=== PATIENT | female | born 1950 | race Caucasian/White ===

== ENCOUNTER → 2021-08-04 | Outpatient (CLI) | payer MEDICARE, OTHER | LOC: M.MRI 08-03 13:30 | PROVIDERS: ATTEND Orthopaedic Surgery | DX: S83.282A Other tear of lateral meniscus, current injury, left knee, initial encounter (principal); S83.242A Other tear of medial meniscus, current injury, left knee, initial encounter; M17.12 Unilateral primary osteoarthritis, left knee; M25.462 Effusion, left knee; X58.XXXA Exposure to other specified factors, initial encounter; Y93.89 Activity, other specified; Y92.89 Other specified places as the place of occurrence of the external cause; Y99.8 Other external cause status ==

== ENCOUNTER → 2021-10-14 | Outpatient (CLI) | payer MEDICARE, OTHER ==
[~2021-10-14] MED LIST: ACETAMINOPHEN500 M1 PO; CELEXA20 MG PO; FENTANYL1 EAC1 TRANSDERM; HAIR SKIN NAIL1 EACH PO; LEXAPRO 10 MG T10 M1 PO; NEURONTIN300 MG PO; OMEPRAZOLE 20 M20 M1 PO; PROVENTIL HFA6.7 G1 INH; SINGULAIR 10 MG10 MG PO; SPIRIVA18 MCG INH; SYMBICORT160 MCG/4. INH; VITAMIN B-121000 MC2 SUBLING; VITAMIN C1000 MG PO; VITAMIN D3250 MC2 PO
[2021-10-14 09:38] LABS: URINE BILIRUBIN NEGATIVE (Negative); URINE BLOOD NEGATIVE (Negative); URINE CLARITY CLEAR; URINE COLOR YELLOW; URINE GLUCOSE-RANDOM NEGATIVE (Negative); URINE KETONES NEGATIVE (Negative); URINE LEUKOCYTES-REFLEX NEGATIVE (Negative); URINE PROTEIN NEGATIVE (Negative); URINE SPECIFIC GRAVITY 1.015 (1.005-1.030); URINE UROBILINOGEN 0.2 E.U./dl (0.2-1.0)
[2021-10-14 09:45] LABS: URINE NITRITE-REFLEX POSITIVE (Negative)
[2021-10-14 09:49] LABS: SQUAMOUS 0-3 Few /LPF (0-3)
[2021-10-14 09:50] LABS: BACTERIA-REFLEX >30 Many /HPF (None Seen); CASTS None Seen /LPF (None Seen); CRYSTALS None Seen /LPF (None Seen); URINE RBC 0-2 Rare /HPF (0-2); URINE WBC-REFLEX 0-5 Rare /HPF (0-5)
[2021-10-14 10:40] LABS: ABSOLUTE EOSINOPHILS 0.2 thou/uL (0.0-0.7); ABSOLUTE LYMPHOCYTES 2.1 thou/uL (0.8-5.3); ABSOLUTE MONOCYTES 0.4 thou/uL (0.0-1.2); ABSOLUTE NEUTROPHILS 2.2 thou/uL (1.6-8.1); BASOPHILS 0.7 %; EOSINOPHILS 3.7 %; HEMATOCRIT 35.7 % (37.0-47.0); HEMOGLOBIN 11.7 gm/dL (12.0-15.0); LYMPHOCYTES 42.9 %; MCH 31.4 pg (26.0-34.0); MCHC 32.8 g/dL (28.0-37.0); MCV 95.6 fL (80.0-100.0); MONOCYTES 8.9 %; MPV 6.6 fl. (7.2-11.1); NUCLEATED RBCS 0 /100WBC; PLATELET COUNT* 312 thou/uL (150-400); POLYS 43.8 %; RBC 3.73 mil/uL (4.20-5.00); RDW-CV 14.6 % (10.5-14.5); WBC 4.9 thou/uL (4.0-11.0)
[2021-10-14 10:45] LABS: INR 0.9; PROTIME 9.6 Seconds (9.20-11.50)
--- NOTE | 2021-10-14 10:58 | EKG ---
[place] [address] ELECTROCARDIOGRAM REPORT Name: MADIE BARAJAS Room: [facility]#: [id number] Admission: 10/14/21 Attend Phys: Nirav Mora, Discharge: Date of : 50 Date of Service: 10/14/21 1016 Report #: [id number] THIS REPORT FOR: //name// [facility] Test Date: 2021-10-14 Test Time: 10:16:26 Pat Name: MADIE BARAJAS Department: Room: Gender: Chief Station Engineer: SKYLA LEMUS : 1950 Requested By: Nirav Mora Order Number: [id number] Junior MD: Vj Sanchez Measurements Intervals [place] Rate: 67 P: 80 NM: 159 QRS: 66 QRSD: 136 T: 54 QT: 385 QTc: 407 Interpretive Statements Sinus rhythm Probable left atrial enlargement Right bundle branch block No previous ECG available for comparison Electronically Signed On 10-14-2021 10:58:16 [employer]PORATE [employer] by Vj Sanchez [email or web address] <ELECTRONICALLY SIGNED> By: Vj Sanchez MD, [facility] 10/14/21 1058 1016 1016 Vj Sanchez MD, FAC /EPI
[2021-10-14 11:23] LABS: ALBUMIN 3.7 g/dL (3.4-5.0); CALCIUM 9.9 mg/dL (8.5-10.1); CREATININE 0.7 mg/dL (0.6-1.3); TOTAL BILIRUBIN 0.3 mg/dL (<0.1-1.0); TOTAL PROTEIN 6.5 g/dL (6.4-8.2)
[2021-10-14 12:32] LABS: MUCUS 0-3 Light strn/LPF (None Seen)
== END ==
LOC: M.LAB 06:32
PROVIDERS: ATTEND Orthopaedic Surgery
DX: Z01.818 Encounter for other preprocedural examination (principal); Z01.812 Encounter for preprocedural laboratory examination; I45.19 Other right bundle-branch block; M17.12 Unilateral primary osteoarthritis, left knee

== ENCOUNTER → 2021-11-16 | Outpatient (CLI) | payer MEDICARE, OTHER ==
[~2021-11-16] MED LIST changes: +CLARITIN10 M3 PO; +EFFEXOR XR37.5 MG PO; +FLONASE 0.05%50 MCG NARES; +NORCO5 PO; +[UNRECOGNIZED DRUG - OTHER] PO
== END ==
LOC: M.LAB 12:17
PROVIDERS: ATTEND Orthopaedic Surgery
DX: Z01.812 Encounter for preprocedural laboratory examination (principal); Z20.822 Contact with and (suspected) exposure to COVID-19

== ENCOUNTER 2021-11-17 05:48 | Inpatient (IN) | payer MEDICARE, OTHER ==
[~2021-11-17] VITALS: Ht 167.6 cm; Wt 63.0 kg
--- NOTE | ~2021-11-17 | OP ---
[address] [address] OPERATIVE REPORT Name: MADIE BARAJAS Room: [address] [place] .R.#: [id number] Admission: 11/17/21 Attend Phys: Nirav Mora II Discharge: Date of : 50 Report #: [id number] THIS REPORT FOR: cc: Naya Arana MD, Pamela MD Greiner, Robert F. II DO ~ DATE OF SURGERY: 11/17/2021 PREOPERATIVE DIAGNOSIS: Left knee osteoarthritis. POSTOPERATIVE DIAGNOSIS: Left knee osteoarthritis. PROCEDURE: Left total knee arthroplasty. SURGEON: Nirav Mora II, DO. OCCUPATIONAL HEALTH NURSE MANAGER: CINTHIA Vieyra. ANESTHESIA: Per operative record. ESTIMATED BLOOD LOSS: 50 mL. ANTIBIOTICS: Per operative record. DRAINS: Medium Hemovac. COMPLICATIONS: None. CONDITION: The patient stable to recovery room. DESCRIPTION OF PROCEDURE: The patient was taken to the operative suite, placed supine on the operating table, given appropriate anesthesia. A well-padded tourniquet applied to the upper thigh, which was inflated to 300 mmHg after gravity exsanguination. The operative knee was sterilely prepped and draped. Surgery began by midline incision that was carried down to subcutaneous tissues. A medial parapatellar arthrotomy was performed, carried down to bone. Patella was then everted and excess soft tissue was removed from the femur. Femoral cutting block was then applied, checked with a drop marivel for rotational alignment, pinned in appropriate position and appropriate cuts were made. A 4-in-1 cutting block was then applied, checked with a drop marivel for rotational alignment, pinned in appropriate position and appropriate cuts were made. Tibia was exposed. Excess meniscus was removed. Retractor was placed on collateral ligaments. The tibial cutting block was then applied, pinned in appropriate position, checked with a drop for rotational alignment and slope and appropriate cut was made. Tibial bone was removed. Tibial baseplate was then applied, checked for rotational alignment with a drop marivel [place] [address] OPERATIVE REPORT Name: MADIE BARAJAS Room: [address] [place] .R.#: [id number] Admission: 11/17/21 Attend Phys: Nirav Mora II Discharge: Date of : 50 Report #: [id number] position. Femur was then applied and box cut was reamed. This was trialed with appropriate spacer, which showed excellent fit and fill and excellent stability of the knee through all range of motion. Patella was reamed in appropriate fashion, sized to appropriate size. Three peg holes were drilled and it was then trialed and showed excellent flexion, extension, excellent tracking patella within the groove. These trials were then removed. The tibia was punched in appropriate fashion. Bone ends were cleansed with Pulsavac irrigation and cement was mixed, applied to final implants. These were malleted into position and held the knee in extension and compressed to allow cement to cure. After it cured, excess was removed with a Dalton and osteotome. Wound was then copiously irrigated and the final spacer was then malleted in position. Tourniquet was deflated. Hemostasis was maintained with electrocautery. Pain cocktail was injected. Capsule was closed with #2 FiberWire and 1 Vicryl in [id number] fashion. Skin was closed with 2-0 Vicryl and a running 3-0 Monocryl. Dermabond dressing was applied. Dudley wrap and PolarCare applied. The patient transported to recovery in stable condition. Counts were correct throughout the procedure. By: [id number] Mora II, DO /nt
[~2021-11-17 05:48] MED LIST changes: -CLARITIN10 M3 PO; -EFFEXOR XR37.5 MG PO; -FLONASE 0.05%50 MCG NARES; -NORCO5 PO; -[UNRECOGNIZED DRUG - OTHER] PO
[2021-11-17 15:58] VITALS: BP 128/66
[2021-11-17] MEDS ORDERED: EFFEXOR XR37.5 MG PO (16:45)
[2021-11-17] MEDS ORDERED: FLONASE 0.05%50 MCG NARES (16:45)
[2021-11-17] MEDS ORDERED: CLARITIN10 M3 PO (16:46)
[2021-11-17] MEDS ORDERED: NORCO5 PO (16:46)
[2021-11-17] MEDS ORDERED: [UNRECOGNIZED DRUG - OTHER] PO (16:50)
[2021-11-17 19:52] VITALS: BP 99/61
[2021-11-18] VITALS (8 sets, daily range): BP systolic 111–131; BP diastolic 61–68
[2021-11-18 05:28] LABS: HEMATOCRIT 28.4 % (37.0-47.0); HEMOGLOBIN 9.6 gm/dL (12.0-15.0)
[2021-11-18] MEDS ORDERED: CELEXA 20 MG TA20 MG PO (09:25)
[2021-11-18] MEDS ORDERED: COLACE 100 MG100 MG PO (12:14)
[2021-11-18] MEDS ORDERED: XARELTO10 MG PO (12:14)
[2021-11-18] MEDS ORDERED: OXYCODONE HCL 55 MG PO (12:32)
== END 2021-11-18 16:40 | disposition home health service (06) | DRG 470 ==
LOC: M.SUR 05:48 → M.TBA 10:29 → EDSTATUS 10:34 → M.ORTHSURG 10:35 → M.TBA 12:24 → M.2W 12:24
PROVIDERS: Orthopaedic Surgery; ADMIT Internal Medicine; ATTEND Internal Medicine
PROC: 3E0T3BZ Introduction of Anesthetic Agent into Peripheral Nerves and Plexi, Percutaneous Approach (ICD-10-PCS; principal; 2021-11-17)
PROC: 0SRD0J9 Replacement of Left Knee Joint with Synthetic Substitute, Cemented, Open Approach (ICD-10-PCS; principal; 2021-11-17)
DX: M17.12 Unilateral primary osteoarthritis, left knee (principal); K21.9 Gastro-esophageal reflux disease without esophagitis; M54.9 Dorsalgia, unspecified; G89.29 Other chronic pain; F17.210 Nicotine dependence, cigarettes, uncomplicated; Z96.653 Presence of artificial knee joint, bilateral; Z71.3 Dietary counseling and surveillance; Z88.6 Allergy status to analgesic agent; Z88.0 Allergy status to penicillin; Z88.8 Allergy status to other drugs, medicaments and biological substances; Z90.710 Acquired absence of both cervix and uterus; Z82.49 Family history of ischemic heart disease and other diseases of the circulatory system; Z80.9 Family history of malignant neoplasm, unspecified